=== PATIENT | female | born 1935 | race Caucasian/White ===

== ENCOUNTER 2019-07-09 19:17 | Inpatient (IN) | payer OTHER, MEDICARE ==
[~2019-07-09] VITALS: Ht 167.6 cm; Wt 63.0 kg
[2019-07-09 19:22] VITALS: Ht 167.6 cm; Wt 63.0 kg
--- NOTE | 2019-07-09 19:40 | NUR ---
PT BIB FAMILY FOR C/O CHEST "PRESSURE" WITH PAIN THAT IS LOCATED LEXUS ON RIBS. PT STS THAT SHE HAS BEEN HAVING SOB AND CHEST PAIN INTERMITTENTLY X2 DAYS. PT DENIES ANY COUGH OR FLU LIKE SYMPTOMS RECENTLY. PT REPORTS A " POSSIBILITY" OF HX OF COPD. PT HAS A HX OF TIA AND HEART ATTACK. PT REPORTS BEING COMPLIANT WITH HOME MEDICATIONS. PT IS A/O X4. PT RESPS ARE E/U. PT IS ABLE TO ANSWER QUESTIONS APPROPRIATELY. PT IS PLACED ON CM. FMAILY IS AT BEDSIDE. AWAITING MSE
--- NOTE | 2019-07-09 19:48 | NUR ---
MSE COMPLETED BY DR PAEZ
[2019-07-09 20:03] LABS: BASOPHIL % 0.6 % (0-2); PLATELET COUNT 168 x10^3mcL (130-400); RED CELL DISTRIBUTION WIDTH 13.9 % (11.5-14.5)
--- NOTE | 2019-07-09 20:07 | NUR ---
PT MEDICATED PER EMAR ORDERS. PT HAS FAMIYL AT BEDSIDE. PT IS A/O X4. PT RESPS ARE E/U.
[2019-07-09 20:12] LABS: CALCIUM 8.6 mg/dL (8.5-10.1); CARBON DIOXIDE 22.2 mmol/L (21-32); CHLORIDE SERUM 110 mmol/L (98-107); CREATININE SERUM 1.2 mg/dL (0.6-1.0); GLUCOSE SERUM 92 mg/dL (74-106); POTASSIUM SERUM 4.1 mmol/L (3.5-5.1); SODIUM SERUM 144 mmol/L (136-145)
[2019-07-09 20:16] LABS: ALBUMIN 3.5 g/dL (3.4-5.0); ALKALINE PHOSPHATASE 90 U/L (46-116); ALT/SGPT 12 U/L (14-59); AST/SGOT 15 U/L (15-37); BILIRUBIN TOTAL 0.6 mg/dL (0.20-1.00); TOTAL PROTEIN, SERUM 6.8 g/dL (6.4-8.2)
[2019-07-09] MEDS ORDERED: CARVEDILOL6.25 M1 (21:25)
[2019-07-09] MEDS ORDERED: ZOCOR80 MG (21:25)
[2019-07-09] MEDS ORDERED: NEU300 (21:25)
[2019-07-09] MEDS ORDERED: ASPIR 8181 MG (21:25)
[2019-07-09] MEDS ORDERED: LOSARTAN POTAS100 M1 (21:25)
[2019-07-09] MEDS ORDERED: OXYBUTYNIN CHLOR5 M2 (21:26)
[2019-07-09] MEDS ORDERED: CLOPIDOGREL75 M1 (21:26)
--- NOTE | 2019-07-09 21:28 | NUR ---
PT MEIDCATED PER EMAR ORDERS. PT IS AWARE OF BEING ADMITTED TO THE HOSPITAL FOR FURTHER CARE. PT IS A/O X4. PT RESPS ARE E/U. NO ACD
--- NOTE | 2019-07-09 21:49 | NUR ---
PT IS ABLE TO AMBULATE TO RESTROOM WITH STEADY GAIT
--- NOTE | 2019-07-09 22:35 | NUR ---
PT WAS MOVED FROM BED 1 TO BED 3
--- NOTE | 2019-07-09 22:41 | NUR ---
PT IS A/O X4. PT RESTING COMFORTABLY IN ED GURNEY. PT RESPS ARE E/U. FAMILY IS AT BEDSIDE. NO ACD NOTED
[2019-07-09 22:46] LABS: CHOLESTEROL/HDL RATIO 3.2
--- NOTE | 2019-07-09 22:46 | NUR ---
PT REPORT GIVEN TO KESHIA RN UPSTAIRS ON TELE FLOOR TO ASSUME PRIMARY CARE OF PT
[2019-07-09 22:51] LABS: FREE T4 1.13 ng/dL (0.76-1.46); T4(THYROXINE) 9.3 ug/dL (4.7-13.3)
--- NOTE | 2019-07-09 22:59 | NUR ---
RECEIVED FROM ED.PUT IN ROOM 251 A AND MADE COMFORTABLE.TELE 19 ASSIGNED.PUT IN ROOM 2501 A AND MADE COMFORTABLE.CLARY WILL ADMIT PATIENT.PATIENT ACCOMPANIED BY NURSE AND SON RO.CALL LIGHT IN REACH.
--- NOTE | 2019-07-09 23:03 | NUR ---
PT TRANSFFERED TO [facility]
--- NOTE | 2019-07-09 23:10 | NUR ---
PT TAKEN UPSTAIRS TO ROOM 251A FOR FURTHER CARE. NO INCIDENCE NOTED
[2019-07-09 23:23] VITALS: BP 184/88
--- NOTE | 2019-07-09 23:30 | NUR ---
PATIENT CHECKED AT THIS TIME,RESTING,ALMOST SLEEPING.DR VARGAS MADE AWARE OF BP BY CLARY,TELE 22 1ST DEGREE AVB.HAD MED FROM ER.ALSO HAD LASIX.
--- NOTE | 2019-07-09 23:37 | NUR ---
RECEIVED PT FROM ER, PT ADMIT FOR CHF. 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 PEDAL PULSE PRESENT BOTH FEET, NO EDEMA,IV AT RIGHT WRIST, NO LEAKING, NO INFILTRAITON. ALL ADLS ASSIST, ALL NEED MET, CALL LIGHT IN REACH, WILL CONTINUE TO MONITOR.
--- NOTE | 2019-07-09 23:44 | NUR ---
INFORM DR. ARELLANO REGARDING THE FIRST DEGREE AV BLOCK AND ALSO THE B/P IS 184/88 AT THIS MOMENT, MADE AWARE, WILL CONTINUE TO MONITOR THE PT.
[2019-07-10 00:07] LABS: T3 TOTAL 0.96 ng/mL
--- NOTE | 2019-07-10 00:58 | NUR ---
BP CHECKED 150/90.MAP OF 110.NO SYMPTOMS PRESENTED,BACK TO SLEE AFTER.
[2019-07-10 00:59] VITALS: BP 150/9
--- NOTE | 2019-07-10 01:05 | NUR ---
NEED UA UDS,PATIENT MADE AWARE.COLLECTING HAT IN PLACE.AIRFRAME AND POWERPLANT MECHANIC MADE AWARE ALSO.
--- NOTE | 2019-07-10 05:21 | NUR ---
PATIENT FLUID RESTRICTION 1200 CC/ 24 HOURS,NOTED.
--- NOTE | 2019-07-10 06:00 | NUR ---
PATIENT BP AT 6 AM 163/63.
[2019-07-10 06:05] VITALS: BP 163/63
--- NOTE | 2019-07-10 06:06 | NUR ---
PATIENT BP 163/63,DR ARELLANO MADE AWARE.NO PRN MED ORDER YET.
--- NOTE | 2019-07-10 06:15 | NUR ---
ORDERED MED,BUT NEED CLARIFICATION WHEN TO GIV. AND NOT ONLY NOT TO GIVE.PHARMACIST PAGING DR ARELLANO.
[2019-07-10 06:39] LABS: BASOPHIL % 0.5 % (0-2); PLATELET COUNT 155 x10^3mcL (130-400); RED CELL DISTRIBUTION WIDTH 13.9 % (11.5-14.5)
[2019-07-10 06:44] LABS: microscopic required? YES; urine erythrocyte 1+ (NEGATIVE)
--- NOTE | 2019-07-10 06:54 | NUR ---
BP NOW 134/44.PATIENT HAS NO SYMPTOMS PRESENTED.WILL ENDORSE TO NEXT SHIFT.
[2019-07-10 06:55] VITALS: BP 134/44
[2019-07-10 07:03] LABS: CALCIUM 8.2 mg/dL (8.5-10.1); CARBON DIOXIDE 24.9 mmol/L (21-32); CHLORIDE SERUM 109 mmol/L (98-107); CREATININE SERUM 1.4 mg/dL (0.6-1.0); GLUCOSE SERUM 87 mg/dL (74-106); MAGNESIUM 1.7 mg/dL (1.8-2.4); PHOSPHOROUS 4.3 mg/dL (2.5-4.9); POTASSIUM SERUM 3.8 mmol/L (3.5-5.1); SODIUM SERUM 145 mmol/L (136-145)
--- NOTE | 2019-07-10 07:10 | NUR ---
RECEIVED PT FROM NIGHT NURSE. PT IS SITTING UP IN BED. PT LOOKS TO BE IN NO ACUTE DISTRESS AND DENIES ANY PAIN. RESPIRATIONS EVEN AND UNLABORED ON ROOM AIR. IV SITE PATENT WITH NO SIGNS OF ERYTHEMA OR SWELLING. TELE MONITOR 22 PRESENT. BED IN LOWEST POSITION, CALL LIGHT WITHIN REACH. WILL CONTINUE TO MONITOR.
[2019-07-10 07:35] LABS: AMPHETAMINE QUAL UR NONE DETECTED (See below)
[2019-07-10 09:10] VITALS: BP 148/73
--- NOTE | 2019-07-10 10:19 | NUR ---
ECHO PENDING PT. HAD ECHO DONE LAST MONTH AT [facility]. MERLE BECKFORD NOTIFIED TO OBTAIN REPORT.
[2019-07-10 12:44] VITALS: BP 113/49
--- NOTE | 2019-07-10 13:50 | NUR ---
PT IS LAYING DOWN IN BED WITH HOB UP RESTING. PT LOOKS TO BE IN NO ACUTE DISTRESS AND DENIES ANY PAIN AT THIS TIME. IV SITE PATENT WITH NO SIGNS OF ERYTHEMA OR SWELLING. BED IN LOWEST POSITION, CALL LIGHT WITHIN REACH. WILL CONTINUE TO MONITOR.
--- NOTE | 2019-07-10 15:45 | NUR ---
PT IS SITTING UP IN BED TALKING WITH FAMILY MEMBER. PT LOOKS TO BE IN NO ACUTE DISTRESS AT THIS TIME. FAMILY MEMBER AT BEDSIDE. WILL CONTINUE TO MONITOR.
[2019-07-10] MEDS ORDERED: L20I PO (16:30)
[2019-07-10 16:52] VITALS: BP 113/49
--- NOTE | 2019-07-10 18:13 | NUR ---
PT AWAKE, ALERT AND ORIENTED AT TIME OF DISCHARGE. PT LOOKS TO BE IN NO ACUTE DISTRESS AND DENIES ANY PAIN AT TIME OF DISCHARGE. PT DISCHARGED HOME AND WALKED TO LOBBY ACCOMPANIED BY FAMILY MEMBER AND NURSE WITH BELONGINGS IN HANDS. PROVIDED PT WITH EDUCATION AND PRESCRIPTIONS, PT VERBALIZED UNDERSTANDING OF EDUCAITON AND PRESCRIPTIONS. INFORMED PT OF FOLLOW UP APPOINTMENT AND THE NEED TO ATTEND THE FOLLOW UP APPOINTMENT. PT STATED THAT SHE ALREADY HAS AN APPOITNMENT WITH HER PCP ON Monday07/12/19, INFORMED PT TO CHECK WITH PCP BEFORE CANCELING FOLLOW UP APPOINTMENT THAT WAS MADE IN HOSPTIAL BUT TO STILL BRING DISCHARGE INFORMATION WHEN MEETING WITH PCP ON 07/12/19 APPOINTMENT. IV REMOVED AND CATHETER FULLY INTACT. TELE MONITOR REMOVED AND RETURNED TO TELE STATION. ALL QUESTIONS AND CONCERNS ADDRESSED.
--- NOTE | 2019-07-11 10:23 | NUR ---
Echo not done pt. discharged AMA.
== END 2019-07-10 17:46 | disposition home or self-care (01) | DRG 291 ==
LOC: ED 19:17 → DU 21:53
PROVIDERS: Emergency Medicine; ADMIT General Practice
DX: I13.0 Hypertensive heart and chronic kidney disease with heart failure and stage 1 through stage 4 chronic kidney disease, or unspecified chronic kidney disease (principal); N17.0 Acute kidney failure with tubular necrosis; I50.31 Acute diastolic (congestive) heart failure; I25.10 Atherosclerotic heart disease of native coronary artery without angina pectoris; I73.9 Peripheral vascular disease, unspecified; I69.344 Monoplegia of lower limb following cerebral infarction affecting left non-dominant side; N18.9 Chronic kidney disease, unspecified; E78.5 Hyperlipidemia, unspecified; Z66 Do not resuscitate; Z68.23 Body mass index [BMI] 23.0-23.9, adult; Z95.5 Presence of coronary angioplasty implant and graft; Z95.1 Presence of aortocoronary bypass graft; Z87.891 Personal history of nicotine dependence; Z86.73 Personal history of transient ischemic attack (TIA), and cerebral infarction without residual deficits; Z79.82 Long term (current) use of aspirin
CPT/HCPCS: 83880; 84439; G0378; J0360; J1885; J1940; J7613; J7644